=== PATIENT | female | born 1985 | race Caucasian/White ===

== ENCOUNTER 2019-07-05 08:46 | Emergency (ER) | payer MEDICAID ==
[~2019-07-05] VITALS: Ht 157.5 cm; Wt 76.0 kg
[2019-07-05 10:35] LABS: BASOPHILS % 0.5 % (0.0-2.0); EOSINOPHILS % 1.8 % (0.0-5.0); HEMATOCRIT. 43.9 % (36.0-48.0); HEMOGLOBIN. 14.9 g/dL (12.0-16.0); LYMPHOCYTES % 28.9 % (20.0-50.0); MEAN CORPUSCULAR HEMOGLOBIN 30.6 pg (28.0-32.0); MEAN CORPUSCULAR VOLUME 90.5 fL (81.0-99.0); MEAN PLATELET VOLUME 8.5 fl (7.4-10.4); NEUTROPHILS % 60.8 % (40.0-76.0); PLATELET 229 x1000/uL (130-400); RED BLOOD CELL COUNT 4.85 mill/uL (4.2-5.4)
[2019-07-05 10:38] LABS: CHLORIDE 110 mEq/L (98-107)
[2019-07-05 11:01] LABS: B-HCG QUANTITATIVE 4007 mIU/mL (<3)
[2019-07-05 13:20] VITALS: BP 99/54
== END 2019-07-05 13:25 | disposition home or self-care (01) ==
LOC: ER 08:46
DX: O02.1 Missed abortion (principal); Z3A.08 8 weeks gestation of pregnancy
CPT/HCPCS: 36415; 76801; 80053; 81025; 84702; 85025; 86850; 86900; 99284